=== PATIENT | female | born 1965 | race Caucasian/White ===

== ENCOUNTER 2016-06-07 17:07 | Emergency (ER) | payer SELFPAY ==
[2016-06-07] MEDS ORDERED: ASPIRIN 81 MG TABLET, CHEWABLE PO ONE ×2 (17:23→17:36)
--- NOTE | 2016-06-07 17:26 | ER Document Report ---
ED Medical Screen (RME) - General Stated Complaint: COUGH,CONGESTION,WHEEZING Time seen by provider: 17:21 Mode of Arrival: Wheelchair Information source: Patient Notes: 51 yo non smoker female brought from [facility]. she is c/o left neck, left sided chest pain, coughing for 2-3 days. Vomited. Hx intermittently disoriented with incontinence. hx malignant uterine cancer. hx hyperlipedemia TRAVEL OUTSIDE OF THE [place] IN LAST 30 DAYS: No - Related Data Allergies/Adverse Reactions: iodine [Iodine] Allergy (Intermediate, Verified 04/08/13 23:52) Past Medical History - Past Medical History Cardiac Medical History: Reports: Hx Hypercholesterolemia, Hx Hypertension Pulmonary Medical History: Denies: Hx Tuberculosis GI Medical History: Reports: Hx Colonoscopy, Hx Endoscopy Musculoskeltal Medical History: Reports Hx Arthritis, Reports Hx Musculoskeletal Deformity, Reports Hx Musculoskeletal Trauma Psychiatric Medical History: Reports: Hx Bipolar Disorder, Hx Depression Past Surgical History: Reports: Hx Cardiac Catheterization, Hx Cholecystectomy, Hx Hysterectomy - total, Hx Orthopedic Surgery - L knee surgery x3. Denies: Hx Pacemaker - Immunizations Hx Diphtheria, Pertussis, Tetanus Vaccination: Yes Physical Exam - Vital signs Vitals: Temp Pulse Resp BP Pulse Ox 97.4 F 64 16 120/71 99 06/07/16 17:19 06/07/16 17:19 06/07/16 17:19 06/07/16 17:19 06/07/16 17:19 Course - Vital Signs Vital signs: Temp Pulse Resp BP Pulse Ox 97.4 F 64 16 120/71 99 06/07/16 17:19 06/07/16 17:19 06/07/16 17:19 06/07/16 17:19 06/07/16 17:19
--- NOTE | 2016-06-07 17:33 | ER Document Report ---
ED Medical Screen (RME) - General Stated Complaint: COUGH,CONGESTION,WHEEZING Time seen by provider: 17:32 Mode of Arrival: Wheelchair Information source: Patient Notes: 51 yo smoker female c/o cough, congestion, left sided chest pain for 1.5 weeks. , seen on 05-18 for now resolved right chest pain. Took xray, left without discharge instructions. Hurts more when she leans back, moves, bends or coughs. Still has a cough. TRAVEL OUTSIDE OF THE [place] IN LAST 30 DAYS: No - Related Data Allergies/Adverse Reactions: iodine [Iodine] Allergy (Intermediate, Verified 04/08/13 23:52) Past Medical History - Past Medical History Cardiac Medical History: Reports: Hx Hypercholesterolemia, Hx Hypertension Pulmonary Medical History: Denies: Hx Tuberculosis GI Medical History: Reports: Hx Colonoscopy, Hx Endoscopy Musculoskeltal Medical History: Reports Hx Arthritis, Reports Hx Musculoskeletal Deformity, Reports Hx Musculoskeletal Trauma Psychiatric Medical History: Reports: Hx Bipolar Disorder, Hx Depression Past Surgical History: Reports: Hx Cardiac Catheterization, Hx Cholecystectomy, Hx Hysterectomy - total, Hx Orthopedic Surgery - L knee surgery x3. Denies: Hx Pacemaker - Immunizations Hx Diphtheria, Pertussis, Tetanus Vaccination: Yes Physical Exam - Vital signs Vitals: Temp Pulse Resp BP Pulse Ox 97.4 F 64 16 120/71 99 06/07/16 17:19 06/07/16 17:19 06/07/16 17:19 06/07/16 17:19 06/07/16 17:19 Course - Vital Signs Vital signs: Temp Pulse Resp BP Pulse Ox 97.4 F 64 16 120/71 99 06/07/16 17:19 06/07/16 17:19 06/07/16 17:19 06/07/16 17:19 06/07/16 17:19
[2016-06-07] MEDS ORDERED: IPRATROPIUM/ALBUTEROL 0.5-2.5 MG/3 ML AMPUL NEB ONE (17:35)
--- NOTE | 2016-06-07 18:22 | ER Document Report ---
ED Respiratory Problem - General Chief Complaint: Chest Congestion Stated Complaint: COUGH,CONGESTION,WHEEZING Time seen by provider: 18:20 Mode of Arrival: Wheelchair Information source: Patient Notes: This is a 51-year-old female with a history of hypertension and bipolar affective disorder who presents to the emergency room with cough, subjective fevers and chills, left chest wall tenderness with cough. Patient states she developed a cough in April and has residual cough, but it is the chest discomfort that is the most uncomfortable. She denies any calf tenderness or swelling. She denies any family history for blood clots. The patient is a smoker and she states that she has decreased from a pack and a half a day to approximately 7 cigarettes a day at this point. TRAVEL OUTSIDE OF THE [place] IN LAST 30 DAYS: No - HPI Patient complains to provider of: Chest pain, Cough, Short of breath Onset: Other Duration: Continuous Initiating Event: No: Allergy, Aspiration/Choking, Exertion, Exposure to chemicals, Exposure to dust, Exposure to fumes, Exposure to mold, Exposure to smoke, Out of meds, Sports/exercise, URI, Other Quality of pain: Sharp Severity: Moderate Pain Level: 2 Context: Smoker Short of Breath: Mild Chest pain/discomfort: Center Cough: Nonproductive Sputum amount: None Sputum color: denies: Brown, Clear, Creamy, [place], Green, [place] tinged, Red (blood ), Red Specks, Rust, Small Clots, [place], White, Yellow Sputum consistency: denies: Frothy, Mucoid, Mucoid Plug, Tenacious, Thick, Thin At home treatment: denies: Bronchodilators, CPAP, Diuretics, Inhaled steroids, Oral steroids, Oxygen, Singulair, Theophylline EMS treatments: No: Bronchodilators, CPAP, Diuretics, Epinephrine, Nitrates, Oxygen, Solumedrol Associated symptoms: Chest pain/discomfort, Congestion. denies: Fever Similar symptoms previously: Yes Recently seen / treated by doctor: No - Related Data Allergies/Adverse Reactions: iodine [Iodine] Allergy (Intermediate, Verified 04/08/13 23:52) Past Medical History - General Information source: Patient - Social History Smoking Status: Current Every Day Smoker Cigarette use (# per day): Yes - 1 pack per day Chew tobacco use (# tins/day): Yes Smoking Education Provided: Yes - approximately 3 minutes Frequency of alcohol use: None Drug Abuse: None Lives with: Family Family History: Arthritis, CAD, CVA, DM, Hyperlipidemia, Hypertension, Malignancy, Thyroid Disfunction Patient has suicidal ideation: No Patient has homicidal ideation: No - Past Medical History Cardiac Medical History: Reports: Hx Hypercholesterolemia, Hx Hypertension Pulmonary Medical History: Denies: Hx Tuberculosis GI Medical History: Reports: Hx Colonoscopy, Hx Endoscopy Musculoskeltal Medical History: Reports Hx Arthritis, Reports Hx Musculoskeletal Deformity, Reports Hx Musculoskeletal Trauma Psychiatric Medical History: Reports: Hx Bipolar Disorder, Hx Depression Past Surgical History: Reports: Hx Cardiac Catheterization, Hx Cholecystectomy, Hx Hysterectomy - total, Hx Orthopedic Surgery - L knee surgery x3. Denies: Hx Pacemaker - Immunizations Hx Diphtheria, Pertussis, Tetanus Vaccination: Yes Review of Systems - Review of Systems Constitutional: See HPI, Chills. denies: Fever EENT: No symptoms reported Cardiovascular: No symptoms reported Respiratory: See HPI Gastrointestinal: No symptoms reported Genitourinary: No symptoms reported Female Genitourinary: No symptoms reported Musculoskeletal: No symptoms reported Skin: No symptoms reported Hematologic/Lymphatic: No symptoms reported Neurological/Psychological: No symptoms reported Physical Exam - Vital signs Vitals: Temp Pulse Resp BP Pulse Ox 97.4 F 64 16 120/71 99 06/07/16 17:19 06/07/16 17:19 06/07/16 17:19 06/07/16 17:19 06/07/16 17:19 Notes: Physical exam: GENERAL: 51-year-old female, alert and oriented 3, no acute distress. HEAD: Atraumatic, normocephalic. EYES: Pupils equal round and reactive to light, extraocular movements intact, sclera anicteric, conjunctiva are normal. ENT: TMs normal, nares patent, oropharynx clear without exudates. Moist mucous membranes. NECK: Normal range of motion, supple without lymphadenopathy or JVD. LUNGS: Bilateral wheezing. HEART: Left chest wall tenderness to palpation. Regular rate and rhythm without murmurs, rubs or gallops. ABDOMEN: Soft, nontender, normoactive bowel sounds. No guarding, no rebound. No masses appreciated. EXTREMITIES: Normal range of motion, no pitting or edema. No clubbing or cyanosis. NEUROLOGICAL: Cranial nerves II through XII grossly intact. Normal speech, normal gait. PSYCH: Normal mood, normal affect. SKIN: Warm, Dry, normal turgor, no rashes or lesions noted. Course - Vital Signs Vital signs: Temp Pulse Resp BP Pulse Ox 97.4 F 64 16 125/86 H 99 06/07/16 17:19 06/07/16 17:19 06/07/16 19:20 06/07/16 19:20 06/07/16 19:20 - Laboratory Result Diagrams: 06/07/16 18:42 06/07/16 18:42 Laboratory results interpreted by me: 06/07/16 18:42 WBC 11.1 H MCH 34.0 H RDW 14.6 H Plt Count 590 H - Diagnostic Test Radiology reviewed: Image reviewed, Reports reviewed - Chest x-ray shows no infiltrates. VQ scan shows no evidence of pulmonary emboli. - EKG Interpretation by Me Rate: Normal Rhythm: NSR - EKG shows normal sinus rhythm with a ventricular rate of 68, no acute ST-T wave changes Discharge - Discharge Clinical Impression: bronchitis with bronchospasm Condition: Stable Disposition: HOME, SELF-CARE Instructions: Bronchitis With Bronchospasm (Wheezing) ([facility]) Additional Instructions: Recommendations: Rest, drink plenty of fluids. Take antibiotics as prescribed. Take Percocet as needed. This is a narcotic: Do not drive or operate machinery while on it. See the narcotic instruction sheet. Follow-up with your primary care doctor. Strongly advised to stop smoking. Return to the emergency room for worsening pain or shortness of breath. Prescriptions: Doxycycline Hyclate 100 mg PO BID #20 capsule Oxycodone HCl/Acetaminophen [Percocet 5-325 mg Tablet] 1 - 2 tab PO ASDIR PRN # 25 tablet PRN Reason:
[2016-06-07 19:10] LABS: ABSOLUTE BASOPHILS # (AUTO) 0.1 10^3/uL (0.0-0.2); ABSOLUTE EOSINOPHILS # (AUTO) 0.3 10^3/uL (0.0-0.6); ABSOLUTE LYMPHOCYTES (AUTO) 4.3 10^3/uL (0.5-4.7); ABSOLUTE MONOCYTES (AUTO) 0.7 10^3/uL (0.1-1.4); ABSOLUTE NEUT (AUTO) 5.6 10^3/uL (1.7-8.2); BASOPHILS % (AUTO) 1.2 % (0-2); EOSINOPHILS % (AUTO) 2.6 % (0-6); HEMATOCRIT 40.5 % (36.0-47.0); HEMOGLOBIN 14.2 g/dL (12.0-15.5); HGB HCT DIFFERENCE 2.1; LYMPHOCYTES % (AUTO) 38.7 % (13-45); MEAN CORPUSCULAR HGB CONC 35.1 g/dL (32.0-36.0); MEAN CORPUSCULAR VOLUME 97 fl (80-97); MONOCYTES % (AUTO) 6.7 % (3-13); RED BLOOD COUNT 4.19 10^6/uL (3.72-5.28); RED CELL DISTRIBUTION WIDTH 14.6 % (11.5-14.0); SEGMENTED NEUTROPHILS % (AUTO) 50.8 % (42-78); WHITE BLOOD COUNT 11.1 10^3/uL (4.0-10.5)
[2016-06-07 19:32] LABS: ALANINE AMINOTRANSFERASE 20 U/L (9-52); ALBUMIN 4.1 g/dL (3.5-5.0); ALKALINE PHOSPHATASE 97 U/L (38-126); ANION GAP 13 (5-19); ASPARTATE AMINO TRANSFERASE 28 U/L (14-36); BILIRUBIN,TOTAL 0.3 mg/dL (0.2-1.3); BLOOD UREA NITROGEN 10 mg/dL (7-20); CALCIUM 9.3 mg/dL (8.4-10.2); CARBON DIOXIDE 23 mmol/L (22-30); CHLORIDE 107 mmol/L (98-107); CREATINE KINASE 68 U/L (30-135); CREATININE RESULT 0.84 mg/dL (0.52-1.25); GLUCOSE 83 mg/dL (75-110); POTASSIUM 4.2 mmol/L (3.6-5.0); SODIUM 143.1 mmol/L (137-145); TOTAL PROTEIN 7.8 g/dL (6.3-8.2)
[2016-06-07 19:40] LABS: TROPONIN I < 0.012 ng/mL
--- NOTE | 2016-06-07 23:02 | EKG REPORT ---
SEVERITY:- ABNORMAL ECG - SINUS RHYTHM LEFT ATRIAL ABNORMALITY : Confirmed by: Tatiana Cummings 07-Jun-2016 23:01:39
[2016-06-08 00:01] VITALS: BP 130/81
== END 2016-06-08 00:03 | disposition home or self-care (01) ==
LOC: ER 17:07
DX: J20.9 Acute bronchitis, unspecified (principal); R50.9 Fever, unspecified; F17.210 Nicotine dependence, cigarettes, uncomplicated; E78.00 Pure hypercholesterolemia, unspecified; I10 Essential (primary) hypertension; Z90.710 Acquired absence of both cervix and uterus; Z90.49 Acquired absence of other specified parts of digestive tract
CPT/HCPCS: 93005; 94640; 99284; 36415; 82553; 82550; 80178; 85025; 80053; 84484; 71020; 78582; 93010; A9540; A9567; J7620; Q9969

== ENCOUNTER → 2016-09-08 | Outpatient (CLI) | payer OTHER | LOC: RAD 14:33 | DX: M54.5 Low back pain (principal); M47.896 Other spondylosis, lumbar region | CPT/HCPCS: 72110 ==

== ENCOUNTER 2017-08-27 16:42 | Emergency (ER) | payer OTHER ==
[2017-08-27 16:57] VITALS: BP 133/67
[2017-08-27] MEDS ORDERED: ASPIRIN 81 MG TABLET, CHEWABLE PO ONE (17:15)
--- NOTE | 2017-08-27 17:16 | ER Document Report ---
ED Medical Screen (RME) - General Chief Complaint: Chest Pain Stated Complaint: CHEST PAIN Time Seen by Provider: 08/27/17 17:05 Mode of Arrival: Ambulatory Information source: Patient Notes: 52-year-old female history of hypertension hyperlipidemia who had a heart cath 11 years ago with 25% blockage presents with complaints of intermittent chest pain over the past couple weeks associated with left arm pain. Patient notes she saw her PCP who on her to have a stress test and told to take a baby aspirin daily, patient notes the pain occurred again today and she presented I have greeted and performed a rapid initial assessment of this patient. A comprehensive ED assessment and evaluation of the patient, analysis of test results and completion of the medical decision making process will be conducted by additional ED providers. PHYSICAL EXAMINATION: GENERAL: Morbidly obese HEAD: Atraumatic, normocephalic. EYES: Pupils equal round extraocular movements intact, conjunctiva are normal. ENT: Nares patent NECK: Normal range of motion LUNGS: No respiratory distress Musculoskeletal: Normal range of motion NEUROLOGICAL: Normal speech, normal gait. PSYCH: Normal mood, normal affect. SKIN: Warm, Dry, normal turgor, no rashes or lesions noted. TRAVEL OUTSIDE OF THE [place] IN LAST 30 DAYS: No - Related Data Allergies/Adverse Reactions: iodine [Iodine] Allergy (Intermediate, Verified 08/27/17 16:50) Past Medical History - Social History Frequency of alcohol use: None Drug Abuse: None - Past Medical History Cardiac Medical History: Reports: Hx Hypercholesterolemia, Hx Hypertension Pulmonary Medical History: Denies: Hx Tuberculosis Renal/ Medical History: Denies: Hx Peritoneal Dialysis GI Medical History: Reports: Hx Colonoscopy, Hx Endoscopy Musculoskeltal Medical History: Reports Hx Arthritis, Reports Hx Musculoskeletal Deformity, Reports Hx Musculoskeletal Trauma Psychiatric Medical History: Reports: Hx Bipolar Disorder, Hx Depression Past Surgical History: Reports: Hx Cardiac Catheterization, Hx Cholecystectomy, Hx Hysterectomy, Hx Orthopedic Surgery - L knee surgery x3. Denies: Hx Pacemaker - Immunizations Hx Diphtheria, Pertussis, Tetanus Vaccination: Yes Physical Exam - Vital signs Vitals: Temp Pulse Resp BP Pulse Ox 98.0 F 81 20 133/67 H 99 08/27/17 16:56 08/27/17 16:56 08/27/17 16:56 08/27/17 16:56 08/27/17 16:56 Course - Vital Signs Vital signs: Temp Pulse Resp BP Pulse Ox 98.0 F 81 20 133/67 H 99 08/27/17 16:56 08/27/17 16:56 08/27/17 16:56 08/27/17 16:56 08/27/17 16:56
--- NOTE | 2017-08-27 17:23 | EKG REPORT ---
SEVERITY:- BORDERLINE ECG - SINUS RHYTHM PROBABLE LEFT ATRIAL ABNORMALITY : Confirmed by: Celso Knight MD 27-Aug-2017 17:22:35
== END 2017-08-27 17:39 | disposition left against medical advice (07) ==
LOC: ER 16:42
DX: R07.9 Chest pain, unspecified (principal); M79.602 Pain in left arm; I10 Essential (primary) hypertension; E66.01 Morbid (severe) obesity due to excess calories; Z68.35 Body mass index [BMI] 35.0-35.9, adult; Z53.29 Procedure and treatment not carried out because of patient's decision for other reasons
CPT/HCPCS: 93005; 93010; 99284

== ENCOUNTER → 2017-09-09 | Outpatient (CLI) | payer OTHER ==
--- NOTE | 2017-09-09 12:41 | DRAGON STRESS TEST REPORT ---
Exercise EKG treadmill stress test. Data procedure: September 09, 2017 Indication: Chest pain. Coronary risk factors: Hypertension, dyslipidemia, history of smoking.. Significant physical findings prior to stress testing show a blood pressure of 109/68, and a heart rate of 94 beats per minute. Brief exam revealed no contraindication for patient proceeding with treadmill stress test. Resting 12-lead EKG: Sinus rhythm, no baseline ST segment changes noted. Procedure: The patient was excised on a standard Nikhil protocol. The patient walked a total of 2 minutes and 04 seconds on this protocol and reached a peak heart rate of 116 beats per minute, which is 69 percent of maximum predicted heart rate for age. The test was stopped because of leg discomfort. The patient described no symptoms of chest pain/discomfort. Exercise EKG's show: No significant ST segment depression. Arrhythmias seen: None Peak blood pressure was suboptimal at 154/80. Peak heart rate 116 bpm, the double product was 16.8 kcal. Summary of findings and interpretation: Nondiagnostic stress test. 1. No chest pain or chest discomfort symptoms reproduced however stress test is felt nondiagnostic due to suboptimal heart rate and blood pressure response. 2. No EKG evidence of ischemia in the form of ST segment depression. 3. Suboptimal heart rate and blood pressure response. 4. No arrhythmias seen. 5. Nondiagnostic stress test because of suboptimal heart rate and blood pressure response. 6. Decreased exercise tolerance noted. Recommendations: Nuclear stress test is being recommended with pharmacologic stress agent since patient walks with a cane. Aggressive risk factor modification, and treatment of underlying co-morbidities. Tatiana Cummings M.D., MARKY Admin Secretary payroll benefits clerk, Board certified in cardiovascular diseases, Nuclear cardiology, Echocardiography Cardiac CT and cardiac MRI Ph. [phone] [facility]
== END ==
LOC: SP 08:22
PROVIDERS: ATTEND Family Medicine
DX: R07.9 Chest pain, unspecified (principal)
CPT/HCPCS: 93017

== ENCOUNTER → 2017-11-23 | Outpatient (CLI) | payer OTHER ==
[~2017-11-23] MED LIST: REGADENOSON INJ 0.4 MG/5 ML DISP.SYRIN IV ONE
--- NOTE | 2017-11-27 21:46 | DRAGON STRESS TEST REPORT ---
Intravenous Lexiscan Cardiolite stress test using single photon emmision computerized tomography. Date of procedure: 11/23/17. Ordering Provider: [facility]. Patient's status: Out Patient Indication: Chest pain. Coronary risk factors: Age, hypertension, and dyslipidemia. Resting EKG: Sinus Rhythm. Within Normal Limits. Stress EKG: No changes of ischemia. Reason for termination: Protocol. Conclusions: Normal EKG and hemodynamic response to IV Lexiscan. Nuclear data: At rest the patient was given 14.55 millicuries of technetium 99m sestamibi injected intravenously. As per protocol rest non gated SPECT images were obtained. Subsequently the patient was given intravenous Lexiscan at a dose of 0.4 mg in 5 mL intravenously, followed by flush with normal saline. Subsequently the stress dose of 43.0 millicuries of technetium 99m sestamibi was injected intravenously. As per protocol stress gated images were obtained. Nuclear interpretation: Review of images showed that there was severe bowel contamination artifact of the inferior wall. There is a small area of perfusion defect involving the left ventricle apex in the stress images which normalizes in this rest images. This area had normal motion contraction and thickening by gated study. The rest of the segments of the myocardium had normal perfusion at rest, and normal perfusion post stress with IV Lexiscan. All segments of the myocardium had normal motion, contraction, and thickening by gated study. T. I D. ratio was normal at 1.02. Computer read rest, and stress left ventricular ejection fraction were 65 %, and 69 %, respectively. Conclusion: 1. There is scintigraphic evidence of Lexiscan induced myocardial ischemia involving a small area of the left ventricle apex. 2. There is no scintigraphic evidence of myocardial infarction/scar. Recommendations: Aggressive treatment of coronary artery disease, with the goal of maximizing medications, and risk factor modification, and treating the underlying co- morbidities. The patient continues to have chest pain in spite of maximum medical therapy, then would recommend cardiac catheterization. [facility]
== END ==
LOC: RAD 06:51
DX: R07.9 Chest pain, unspecified (principal); I10 Essential (primary) hypertension; E78.5 Hyperlipidemia, unspecified
CPT/HCPCS: 93017; 78452; A9500; J2785; Q9969